=== PATIENT | male | born 1950 | race Caucasian/White ===

== ENCOUNTER 2018-07-11 16:39 | Inpatient (IN) | payer OTHER ==
[~2018-07-11] VITALS: Ht 170.2 cm; Wt 68.0 kg
[2018-07-11 17:02] VITALS: BP 111/74
[2018-07-11 17:56] LABS: HEMATOCRIT 50.5 % (36-52); MEAN CORPUSCULAR HEMOGLOBIN 30 pg (27-31); MEAN CORPUSCULAR HGB CONC 34 g/dL (33-37); PLATELET COUNT (AUTO) 182 K/uL (140-450); RED BLOOD CELL COUNT(AUTO) 5.68 MIL/uL (4.20-6.10); RED CELL DISTRIBUTION WIDTH 13.4 % (11.6-13.7); WHITE BLOOD COUNT (AUTO) 25.2 K/uL (4.8-10.8)
--- NOTE | 2018-07-11 18:13 | NUR ---
PT AMBULATED TO ER BED 08
[2018-07-11 18:17] LABS: LYMPHOCYTES % (MANUAL) 2 % (20-46); MONOCYTES % (MANUAL) 6 % (5-12)
[2018-07-11 18:23] LABS: ANION GAP 13.8 (8-16); CARBON DIOXIDE 28.5 mmol/L (21-32); POTASSIUM 3.3 mmol/L (3.5-5.1)
[2018-07-11 18:30] LABS: ALBUMIN 3.6 g/dL (3.4-5.0); TOTAL BILIRUBIN 1.4 mg/dL (0.0-1.0)
--- NOTE | 2018-07-11 18:54 | NUR ---
BIB SON C/O WEAKNESS/ GENERALIZED ABDOMINAL PAIN THAT RADIATING TO LOWER EXTREMITIES. PT URENATED X2 TIMES TODAY & C/O PAIN WHEN URENATE. LAST BM : DIARRHEA XYDAY . PT STATES HE VOMITED 2 TIMES X TODAY. PT CAN TYPICALLY WALK BUT IS TOO WEAK TO WALK NOW. HX: PARKINSONS, DM, STROKE (X2), HTN RX:ATORVASTATIN, ACARBOSE,, ASPIRIN, NIFEDIPINE, RANTADINE Addendum: 07/11/18 at 1904 by [employer] SON REPORTED PT HAD 1 STENT IN8 YEARS AGO.
[2018-07-11] MEDS ORDERED: NACL 0.9% 1,000 ML IV SCH (19:07)
--- NOTE | 2018-07-11 19:13 | NUR ---
Pt report given to CODY ROTHMAN. Transfer of care at this time.
--- NOTE | 2018-07-11 19:24 | NUR ---
Dr. Bynum evaluating patient at bedside.
[2018-07-11 19:43] LABS: CKMB RELATIVE INDEX 0.2 (0.0-2.5); CREATINE KINASE MB 0.9 ng/mL (0-3.6)
[2018-07-11] MEDS ORDERED: ASPI81EC19 PO (19:58)
[2018-07-11] MEDS ORDERED: COM200 PO (19:58)
[2018-07-11] MEDS ORDERED: ALOG25TA2 PO (19:58)
[2018-07-11] MEDS ORDERED: PRE50 PO (19:58)
[2018-07-11] MEDS ORDERED: NIFE30TE8 PO (19:58)
[2018-07-11] MEDS ORDERED: CARB1TER PO (19:58)
[2018-07-11] MEDS ORDERED: BENA20TA PO (19:58)
[2018-07-11] MEDS ORDERED: METF500T PO (19:58)
[2018-07-11] MEDS ORDERED: RANI150T8 PO (19:58)
[2018-07-11] MEDS ORDERED: ATOR10TA PO (19:58)
--- NOTE | 2018-07-11 20:09 | NUR ---
X-Ray at bedside.
[2018-07-11] MEDS ORDERED: NACL 0.9% 1,000 ML IV ONE (20:40)
[2018-07-11] MEDS ORDERED: ACETAMINOPHEN 325 MG TAB PO PRN (20:50)
[2018-07-11] MEDS ORDERED: ZOLPIDEM 5 MG TAB PO PRN (20:50)
[2018-07-11] MEDS ORDERED: ONDANSETRON 4 MG/2 ML VIAL IVP PRN (20:50)
[2018-07-11] MEDS ORDERED: HYDROcodone/APAP 5/325 MG 1 TAB TAB PO PRN (20:50)
[2018-07-11] MEDS ORDERED: cefTRIAXone 1,000 MG VIAL ONE (21:08)
[2018-07-11] MEDS ORDERED: ACETAMINOPHEN EXTRA STRENGTH 500 MG TAB PO ONE (21:20)
[2018-07-11 21:49] LABS: THYROID STIMULATING HORMONE 1.48 uIU/mL (0.34-3.74)
--- NOTE | 2018-07-11 22:00 | NUR ---
Patient will be admitted to care of Dr. Anaya. Admited to Tele. Pt went to room 106-B via [facility]. Belongings list completed. Report to LORNA Diehl.
--- NOTE | 2018-07-11 22:05 | NUR ---
ADMITTED THIS 68 YEAR OLD MALE FROM ER PER RADHA WITH CC OF ABDOMINAL PAIN AND WEAKNESS X2 DAYS, TRANSFER TO BED WITH MAXIMUM ASSIST, ASSESSMENT DONE, VITAL SIGNS STABLE, SAT-92% ON ROOM AIR, PUT ON O2 AT 2L/NC, SAT WENT UP TO 94%, DENIES PAIN AT THIS TIME, AAO3, MANDARIN SPEAKING, SIMRAN CORRIGAN PREFER TO TRANSLATE, SKIN INTACT, ORIENTED TO ROOM AND CALL LIGHT, SAFETY MEASURES IN PLACE, CALL LIGHT WITHIN REACH.
[2018-07-11 22:10] VITALS: BP 108/82
[2018-07-11] MEDS: NACL 0.9% 1,000 ML IV SCH (22:23)
--- NOTE | 2018-07-11 22:50 | NUR ---
PT INCONTINENT OF URINE, CLEANED AND REPOSITIONED, ALL NEEDS ATTENDED.
[2018-07-11] MEDS ORDERED: AZITHROMYCIN 500 MG in DEXTROSE 5% 250 ML IV ONE (23:00)
[2018-07-11] MEDS ORDERED: AZITHROMYCIN 500 MG INJ VIAL IV ONE (23:01)
[2018-07-11] MEDS ORDERED: PNEUMOCOCCAL VACCINE 23 MCG/0.5 ML VIAL IMVAC PRN (23:15)
[2018-07-11] MEDS ORDERED: INFLUENZA VIRUS VACCINE QUAD 0.5 ML SYR IMVAC PRN (23:15)
[2018-07-12] VITALS: BP 95/62
--- NOTE | 2018-07-12 | NUR ---
PT SLEEPING, EASILY AROUSABLE, VITAL SIGNS STABLE, AFEBRILE, DENIES PAIN, NO SOB NOTED, SON AT BEDSIDE FOR TRANSLATION, IVF INFUSING WELL, CONTINUE TO MONITOR CLOSELY.
[2018-07-12] MEDS ORDERED: DEXTROSE 50% 50 ML SYR IVP PRN (00:25)
--- NOTE | 2018-07-12 03:50 | NUR ---
PT SLEEPING, EASILY AROUSABLE, VITAL SIGNS STABLE, TEMP-99.5, DENIES PAIN, NO SOB NOTED, INCONTINENT CARE DONE, CLEANED AND REPOSITION, MONITORED CLOSELY.
[2018-07-12 04:00] VITALS: BP 116/74
[2018-07-12] MEDS: INSULIN LISPRO SLIDING SCALE 100 UNITS/ML VIAL SUBQ PRN ×4 (05:53→20:38)
--- NOTE | 2018-07-12 05:58 | NUR ---
AM LABS DRAWN, BLOOD SUGAR CHECKED WITH 153 RESULT, RISS COVERAGE ADMINISTERED, PT WARM TO TOUCH, ORAL TEMP OF 99.1, UNABLE TO COLLECT SPUTUM SPECIMEN, PT HAD DRY COUGH, NO SECRETION NOTED, CONTAINER AT BEDSIDE, SON AND PT AWARE TO COLLECT SPUTUM SPECIMEN FOR TEST, IVF INFUSING WELL, MONITORED CLOSELY.
[2018-07-12] MEDS: BLOOD GLUCOSE MONITORING 1 DEV DEV FS SCH ×4 (06:50→20:39)
[2018-07-12 07:15] LABS: BASOPHILS % (AUTO) 0.2 % (0.0-2.0); HEMATOCRIT 44.3 % (36-52); HEMOGLOBIN 14.9 g/dL (12.0-18.0); LYMPHOCYTES # (AUTO) 0.4 K/uL (2.0-11.5); MEAN CORPUSCULAR HEMOGLOBIN 30 pg (27-31); MEAN CORPUSCULAR HGB CONC 34 g/dL (33-37); MEAN CORPUSCULAR VOLUME 89.6 fL (80-94); MONOCYTES # (AUTO) 0.6 K/uL (0.8-1.0); MONOCYTES % (AUTO) 4.3 % (1.7-9.3); NEUTROPHILS # (AUTO) 13.4 K/uL (1.8-7.7); NEUTROPHILS % (AUTO) 92.5 % (42.2-75.2); PLATELET COUNT (AUTO) 131 K/uL (140-450); RED BLOOD CELL COUNT(AUTO) 4.95 MIL/uL (4.20-6.10); RED CELL DISTRIBUTION WIDTH 13.1 % (11.6-13.7); WHITE BLOOD COUNT (AUTO) 14.5 K/uL (4.8-10.8)
--- NOTE | 2018-07-12 07:20 | NUR ---
PT AWAKE, NO SIGNS OF DISTRESS, BEDSIDE REPORT GIVEN TO RN SITAL FOR CONTINUITY OF CARE.
[2018-07-12 07:35] LABS: ALBUMIN 2.7 g/dL (3.4-5.0); ANION GAP 11.2 (8-16); CARBON DIOXIDE 28.9 mmol/L (21-32); CREATININE 1.3 mg/dL (0.7-1.3); POTASSIUM 3.1 mmol/L (3.5-5.1)
[2018-07-12 08:00] VITALS: BP 127/80
--- NOTE | 2018-07-12 08:04 | NUR ---
PATIENT HAS BEEN SCREENED AND CATEGORIZED MODERATE NUTRITION RISK. PATIENT WILL BE SEEN WITHIN 3-5 DAYS OF ADMISSION. 07/14/[address]
[2018-07-12] MEDS: DOCUSATE SODIUM 100 MG GELCAP PO SCH (09:15)
[2018-07-12] MEDS: NACL 0.9% 1,000 ML IV SCH ×2 (09:18→21:48)
--- NOTE | 2018-07-12 09:30 | NUR ---
ADMINISTERED MEDS TO PT ORDERED. PT ONLY MANDARIN SPEAKING . SON AT HIS BEDSIDE. EXPLAINED THE TYES OF MEDICATION PT IS GETTING. PT ASKING WHEN MD WILL SEE THE PT. INFORMED HIM THAT MD USUALLY MAKES ROUND IN AM. PT TO WAIT. NO SIGN OF DISTRESS NOTED. CALL LIGHT WITHIN PT REACH. WILL CONTINUE TO MONITOR PT.
[2018-07-12] MEDS ORDERED: OSELTAMIVIR PHOSPHATE 75 MG CAP PO SCH (11:10)
[2018-07-12] MEDS ORDERED: MAG SULF 2000 MG/WATER PREMIX 50 ML IV PRN (11:15)
[2018-07-12] MEDS ORDERED: KCL 20 MEQ/WATER INJ PREMIX 100 ML IV PRN (11:15)
[2018-07-12] MEDS ORDERED: OSELTAMIVIR 30MG CAPSULE PO SCH (11:30)
[2018-07-12] MEDS ORDERED: ENTACAPONE 200 MG TAB PO SCH (13:00)
--- NOTE | 2018-07-12 13:00 | NUR ---
ADMINISTERED MEDS TO PT ORDERED. PT IS MANDARIN SPANKING ONLY. COMPLAINS OF NAUSEATE, ZOFRAN PROVIDED. FAMILY AT BEDSIDE. PT ABLE TO USE URINAL. BS 209, 4 UNITS INSULIN GIVEN. NO SIGN OF DISTRESS NOTED. INFORMED TO USE CALL LIGHT FOR ANY HELP. INFLUENZA A & B SWAB COLLECTED.
[2018-07-12] MEDS ORDERED: CARBIDOPA PO SCH (14:00)
[2018-07-12] MEDS ORDERED: LEVODOPA PO SCH (14:00)
[2018-07-12] MEDS ORDERED: ENTACAPONE 200MG TABLET PO SCH (14:00)
[2018-07-12] MEDS: POTASSIUM CHLORIDE 20 MEQ, LIDOCAINE MPF 1% - 5 mL VIAL 25 MG in NACL 0.9% 250 ML IV PRN (15:02)
--- NOTE | 2018-07-12 15:03 | NUR ---
ADMINISTERED MEDS TO PT ORDERED. K RIDER ADMINISTERED FOR LOW POTASSIUM 3.1. TOLERATED WELL . PT FAMILY AT BEDSIDE. NO SIGN OF DISTRESS NOTED. ALL SAFETY MEASURE IN PLACE. WILL CONTINUE TO MONITOR PT.
[2018-07-12 16:00] VITALS: BP 121/69
--- NOTE | 2018-07-12 16:30 | NUR ---
CHECKED ON PT. PT ABLE TO PASS THE URINE IN HIS URINAL. FAMILY AT THE BEDSDIE. PT TEMP 101.4. INITIATED COLD COMPRESSION AND ADMINISTERED TYLENOL TO THE PATIENT. TOLERATED WELL. NO SIGN OF DISTRESS NOTED. CALL LIGHT WITHIN PT REACH. PER PT SON, PT HAS SLIGHT HEARTBURN AFTER TAKING MEDS, NORMAL AT THIS TIME. DENIES ANY NAUSEA AT THIS TIME. NO SIGN OF DISTRESS NOTED. WILL CONTINUE TO MONITOR PT.
[2018-07-12] MEDS: ENTACAPONE 200MG TABLET PO SCH (18:39)
--- NOTE | 2018-07-12 18:40 | NUR ---
CHECKED ON PT. TEM 98.5. FAMILY AT BEDSIDE. NO SIGN OF DISTRESS NOTED. ALL SAFETY MEASURE IN PLACE. WILL CONTINUE TO MONITOR PT.
--- NOTE | 2018-07-12 19:30 | NUR ---
ENDORSED PT TO PM NURSE AT BEDSIDE. PT IN STABLE CONDITION.
--- NOTE | 2018-07-12 19:31 | NUR ---
RECEIVED PT AWAKE ON BED, AAOX4, VITAL SIGNS STABLE, AFEBRILE, SAT-93% ON ROOM AIR, NO SOB NOTED, OCCASIONAL DRY COUGH NOTED, NO PHLEGM NOTED, SPUTUM CONTAINER AT BEDSIDE, K-RIDER INFUSING WELL, ON SAFETY PRECAUTION FOR WEAKNESS, SIDE RAILS UP AND BED ALARM ON, PT MANDARIN SPEAKING, SON AT BEDSIDE FOR TRANSLATION, CALL LIGHT WITHIN REACH.
[2018-07-12 20:00] VITALS: BP 102/68
[2018-07-12] MEDS: OSELTAMIVIR 30MG CAPSULE PO SCH (20:39)
--- NOTE | 2018-07-12 20:50 | NUR ---
BLOOD SUGAR CHECKED WITH 237 RESULT, COVERAGE GIVEN, SNACK PROVIDED, DUE MEDS ADMINISTERED, ALL NEEDS ATTENDED.
[2018-07-12] MEDS ORDERED: ATORVASTATIN 20 MG TAB PO SCH (21:00)
[2018-07-13] VITALS: BP 109/71
--- NOTE | 2018-07-13 | NUR ---
PT SLEEPING ON SUPINE POSITION, OPEN EYES TO TOUCH, VITAL SIGNS STABLE, AFEBRILE, SAT-90% ON ROOM AIR, PUT BACK ON O2 2L/NC, SAT WENT UP TO 95%, NO SOB NOTED, IVF INFUSING WELL, SON AT BEDSIDE, CONTINUE TO MONITOR CLOSELY.
[2018-07-13] MEDS: ALUMINUM HYD/MAG/SIMETHICONE 30 ML UDC PO PRN ×2 (04:19→09:50)
[2018-07-13] MEDS: NACL 0.9% 1,000 ML IV SCH (04:22)
--- NOTE | 2018-07-13 04:24 | NUR ---
PT COMPLAINING OF SEVERE HEARTBURN, PAGED DR AWAD WITH NEW ORDER, MAALOX 30ML GIVEN PRN, TEMP RECHECKED-ORAL TEMP-98.8, NO SOB NOTED, MONITORED CLOSELY.
--- NOTE | 2018-07-13 06:00 | NUR ---
PT ABLE TO STAND AT BEDSIDE WITH MINIMAL ASSIST AND VOIDED FREELY PER URINAL, UNSTEADY WHEN TAKING STEPS, PUT BACK TO BED WITH ASSIST FROM SON, BLOOD SUGAR CHECKED WITH 207 RESULT, COVERAGE GIVEN, PT REQUESTING FOR ANOTHER MEDICATION FOR HEARTBURN, MADE AWARE AWARE OF NEXT DUE TIME, PT AND SON VERBALIZED UNDERSTANDING, NO SOB NOTED, MONITORED CLOSELY.
[2018-07-13] MEDS: INSULIN LISPRO SLIDING SCALE 100 UNITS/ML VIAL SUBQ PRN ×2 (06:09→11:52)
[2018-07-13 06:12] LABS: BASOPHILS % (AUTO) 0.1 % (0.0-2.0); EOSINOPHILS % (AUTO) 0.1 % (0.0-4.0); HEMATOCRIT 45.9 % (36-52); HEMOGLOBIN 15.7 g/dL (12.0-18.0); LYMPHOCYTES # (AUTO) 0.3 K/uL (2.0-11.5); MEAN CORPUSCULAR HEMOGLOBIN 31 pg (27-31); MEAN CORPUSCULAR HGB CONC 34 g/dL (33-37); MEAN CORPUSCULAR VOLUME 88.9 fL (80-94); MONOCYTES # (AUTO) 0.5 K/uL (0.8-1.0); MONOCYTES % (AUTO) 7.5 % (1.7-9.3); NEUTROPHILS # (AUTO) 5.8 K/uL (1.8-7.7); NEUTROPHILS % (AUTO) 87.3 % (42.2-75.2); PLATELET COUNT (AUTO) 129 K/uL (140-450); RED BLOOD CELL COUNT(AUTO) 5.16 MIL/uL (4.20-6.10); RED CELL DISTRIBUTION WIDTH 13.2 % (11.6-13.7); WHITE BLOOD COUNT (AUTO) 6.7 K/uL (4.8-10.8)
[2018-07-13 06:42] LABS: ALBUMIN 2.6 g/dL (3.4-5.0); ANION GAP 10.9 (8-16); CARBON DIOXIDE 27.1 mmol/L (21-32); CREATININE 1.1 mg/dL (0.7-1.3); TOTAL BILIRUBIN 0.5 mg/dL (0.0-1.0)
[2018-07-13] MEDS: BLOOD GLUCOSE MONITORING 1 DEV DEV FS SCH ×2 (06:47→11:49)
--- NOTE | 2018-07-13 07:20 | NUR ---
RECEIVED PT REPORT FROM NIB FINISHER NURSE AT BEDSIDE. PT IS AWAKE IN BED, NO S/S OF ACUTE DISTRESS, NO SOB OR C/O PAIN. PT IS ON ROOM AIR, SKIN INTACT. PT IS JAPANESE SPEAKING ONLY. PT'S SON IS AT BEDSIDE, WHO IS BENGALI SPEAKING. IV SITE NOTED ON THE RAC, 18 G, INFUSING NS 80 ML/HR. FALL PRECAUTIONS IN PLACE. CALL LIGHT WITHIN REACH, WILL CONTINUE TO MONITOR.
--- NOTE | 2018-07-13 07:31 | NUR ---
PT AWAKE, NO DISTRESS NOTED, REPORT GIVEN TO LORNA GARCIA FOR CONTINUITY OF CARE.
[2018-07-13 08:00] VITALS: BP 115/81
[2018-07-13] MEDS ORDERED: KCL 20 MEQ/WATER INJ PREMIX 100 ML IV ONE (08:45)
[2018-07-13] MEDS ORDERED: ALUMINUM HYD/MAG/SIMETHICONE 30 ML UDC PO PRN (08:45)
[2018-07-13] MEDS ORDERED: AZIT250T3 PO (08:49)
[2018-07-13] MEDS ORDERED: CEPH250C16 PO (08:49)
[2018-07-13] MEDS ORDERED: PANT40EC PO (08:49)
--- NOTE | 2018-07-13 08:55 | NUR ---
PT SEEN BY DR CHANEL
[2018-07-13] MEDS: OSELTAMIVIR 30MG CAPSULE PO SCH (09:00)
[2018-07-13] MEDS ORDERED: POTASSIUM CHLORIDE 10 MEQ TABER PO SCH (09:00)
[2018-07-13] MEDS ORDERED: CARBIDOPA PO SCH ×2 (09:00)
[2018-07-13] MEDS ORDERED: ECOTRIN 81 MG TABEC PO SCH (09:00)
[2018-07-13] MEDS ORDERED: LEVODOPA PO SCH ×2 (09:00)
--- NOTE | 2018-07-13 09:04 | NUR ---
CM NOTE I SPOKE WITH JACQUES OF [facility] (PCP) PH# [phone] TO SET UP PATIENT'S OUTPATIENT FOLLOW UP APPOINTMENT. PER JACQUES, THE PATIENT IS SCHEDULED TO SEE DR. [facility] ON JULY 15, 2018 3:30 PM AT THE CLINIC AT [address] [place] [address] [place], [place] [id number]. I GAVE THE PATIENT AND THE PATIENT'S CHILD SHEKHAR WILSON WHO WAS BEDSIDE THE COPY OF THE PATIENT'S OUTPATIENT FOLLOW UP SCHEDULE.
[2018-07-13] MEDS: DOCUSATE SODIUM 100 MG GELCAP PO SCH (09:32)
[2018-07-13] MEDS: ENTACAPONE 200MG TABLET PO SCH (09:33)
[2018-07-13] MEDS: POTASSIUM CHLORIDE 20 MEQ, LIDOCAINE MPF 1% - 5 mL VIAL 25 MG in NACL 0.9% 250 ML IV PRN (09:35)
[2018-07-13] MEDS ORDERED: POTASSIUM CHLORIDE 10 MEQ TABER PO ONE (10:44)
[2018-07-13] MEDS ORDERED: OSELTAMIVIR 30MG CAPSULE PO SCH (11:07)
--- NOTE | 2018-07-13 13:20 | NUR ---
LAB DRAWING BMP AT THIS TIME.
[2018-07-13 13:54] LABS: ANION GAP 9.2 (8-16); CARBON DIOXIDE 27.6 mmol/L (21-32); CREATININE 1.1 mg/dL (0.7-1.3); POTASSIUM 3.8 mmol/L (3.5-5.1)
--- NOTE | 2018-07-13 14:30 | NUR ---
PT HAS DISCHARGED. PT WAS GIVEN DC INSTRUCTIONS AND PRESCRIPTION. PT WAS INFORMED OF HIS FOLLOW UP APPT. PT SIGNED DISCHARGE DOCUMENTS. IV SITE AND WRIST BANDS REMOVED. PT WAS GIVEN FLU AND PNA VACCINES UPON DISCHARGE. PT LEFT WITH ALL HIS BELONGINGS, INCLUDING OWN MEDICATIONS, IN STABLE CONDITION, WITH FAMILY.
== END 2018-07-13 14:30 | disposition home or self-care (01) | DRG 720 ==
LOC: MED 16:39 → MTU 21:09
PROVIDERS: ADMIT Hospitalist; ATTEND Hospitalist
PROC: 3E02340 Introduction of Influenza Vaccine into Muscle, Percutaneous Approach (ICD-10-PCS; principal; 2018-07-11)
PROC: 3E0234Z Introduction of Serum, Toxoid and Vaccine into Muscle, Percutaneous Approach (ICD-10-PCS; 2018-07-11)
DX: A41.89 Other specified sepsis (principal); N17.0 Acute kidney failure with tubular necrosis; J96.01 Acute respiratory failure with hypoxia; G20 Parkinson's disease; E87.1 Hypo-osmolality and hyponatremia; E87.6 Hypokalemia; E11.9 Type 2 diabetes mellitus without complications; I10 Essential (primary) hypertension; Z98.61 Coronary angioplasty status; E78.5 Hyperlipidemia, unspecified; Z88.2 Allergy status to sulfonamides; J15.9 Unspecified bacterial pneumonia; Z23 Encounter for immunization; J12.9 Viral pneumonia, unspecified
CPT/HCPCS: 36415; 71045; 71046; 76770; 80048; 80053; 82550; 82553; 82948; 83036; 83540; 83605; 83880; 84443; 84484; 85025; 86140; 87040; 87081; 87086; 87186; 87804; 90732; 93005; 96361; 96365; 99285; C1758; J0456; J0696; J1644; J1815; J2001; J2405; J3480; J7030; J7060; Q0092